=== PATIENT | female | born 2000 | race Caucasian/White ===

== ENCOUNTER 2020-02-03 11:34 | Outpatient (CLI) | payer BC ==
--- NOTE | 2020-02-03 13:28 | MRI ---
EXAM: MRI of the abdomen and pelvis without and with contrast COMPARISON: None HISTORY: Crohn's disease TECHNIQUE: Multiplanar multi sequence MR images were taken of the abdomen and pelvis without and with IV contrast. VoLumen was given for enteric contrast.. FINDINGS: Bowel: The enteric contrast is seen throughout the small bowel to the level of the colon. The majorit y of the small bowel is normal in caliber. There is an area of slight enlargement of an area small bowel in the left abdomen which could potentially represent a prior small bowel anastomosis. No abnor mal enhancement is seen of this small bowel. There is diffuse thickening of the wall of the left colon extending from the splenic flexure down to the rectum. Increased enhancement of this portion of colon is seen compared to the small bowel and right colon. Liver: No focal liver lesions or intrahepatic ductal dilatation. Gallbladder: No filling defects or gallbladder wall thickening. Common bile duct: Normal caliber without filling defects Adrenal glands: Unremarkable. Kidneys: No hydronephrosis or focal renal lesions. Spleen: Unremarkable. Pancreas: Unremarkable. Retroperitoneum: No enlarged lymph nodes Pelvic structures: Unremarkable Bones: No marrow signal abnormality. IMPRESSION: Abnormal enhancement of the left colon as above consistent with the patient's diagnosis o f inflammatory bowel disease
[2020-02-03] MEDS ORDERED: Magnevist 469MG/ML 20 ML VIAL ONE (14:20)
== END 2020-02-03 11:35 | disposition home or self-care (01) ==
LOC: MRI 11:34
PROVIDERS: ATTEND Internal Medicine Gastroenterology
DX: K50.00 Crohn's disease of small intestine without complications (principal); R10.13 Epigastric pain; G93.0 Cerebral cysts; R19.7 Diarrhea, unspecified; R93.3 Abnormal findings on diagnostic imaging of other parts of digestive tract
CPT/HCPCS: 74183; A9579; J1610

== ENCOUNTER 2020-04-20 12:57 | Outpatient (CLI) | payer BC ==
--- NOTE | 2020-04-20 13:27 | RAD ---
EXAM: Chest PA and lateral: HISTORY: TB screening exam COMPARISON: None FINDINGS: Right-sided [employer] shunt catheter overlies the right chest. Heart size:Within normal limits. Lungs:Clear of acute process. No confluent pneumonia, overt edema, pleural effusion, or other acute process. IMPRESSION: No significant acute intrathoracic disease. No evidence for active TB.
== END 2020-04-20 12:58 | disposition home or self-care (01) ==
LOC: BICRAD 12:57
PROVIDERS: ATTEND Physician Assistant Medical
DX: Z11.1 Encounter for screening for respiratory tuberculosis (principal)
CPT/HCPCS: 71046

== ENCOUNTER 2020-04-22 07:52 | Day surgery (SDC) | payer BC ==
[~2020-04-22 07:52] MED LIST: Acetaminophen 325 MG TAB PO SCH; INFLIXIMAB DYYB IV SCH; SODIUM CHLORIDE 0.9% IV SCH; diphenhydrAMINE 25 MG CAP PO SCH
[2020-04-22] MEDS ORDERED: Sodium Chloride 0.9% 20 ML ONE (08:22)
[2020-04-22 08:43] VITALS: BP 119/67; TEMP 98.4
== END 2020-04-22 11:55 | disposition home or self-care (01) ==
LOC: ONC/OP 07:52
PROVIDERS: ATTEND Internal Medicine Gastroenterology
DX: K50.80 Crohn's disease of both small and large intestine without complications (principal)
CPT/HCPCS: 96413; 96415; J7050; Q0163; Q5103

== ENCOUNTER 2020-05-05 12:13 | Day surgery (SDC) | payer BC | END 2020-05-05 15:48 | disposition home or self-care (01) | LOC: ONC/OP 12:13 | PROVIDERS: ATTEND Internal Medicine Gastroenterology | DX: K50.80 Crohn's disease of both small and large intestine without complications (principal) | CPT/HCPCS: 96413; 96415; J7050; Q0163; Q5103 ==

== ENCOUNTER 2020-06-02 12:45 | Day surgery (SDC) | payer BC ==
[2020-06-02] MEDS ORDERED: Sodium Chloride 0.9% 20 ML ONE (12:56)
[2020-06-02 13:35] VITALS: BP 109/69; TEMP 97.8
== END 2020-06-02 15:26 | disposition home or self-care (01) ==
LOC: ONC/OP 12:45
PROVIDERS: ATTEND Internal Medicine Gastroenterology
DX: K50.80 Crohn's disease of both small and large intestine without complications (principal)
CPT/HCPCS: 96413; 96415; J7050; Q0163; Q5103